=== PATIENT | male | born 1985 | race Caucasian/White ===

== ENCOUNTER 2023-02-03 05:29 | Outpatient (CLI) | payer OTHER ==
[~2023-02-03] VITALS: Ht 175.3 cm; Wt 48.2 kg
[2023-02-04] MEDS ORDERED: FAMO-356 PO (09:07)
[2023-02-04] MEDS ORDERED: CYAN250014 PO (09:07)
[2023-02-04] MEDS ORDERED: AMLO2.5T4 PO (09:07)
== END 2023-02-04 09:27 | disposition home or self-care (01) ==
LOC: PREOP 05:29
PROVIDERS: ATTEND Surgery
DX: Z01.818 Encounter for other preprocedural examination (principal)

== ENCOUNTER 2023-02-10 08:41 | Day surgery (SDC) | payer OTHER ==
[2023-02-10] VITALS (12 sets, daily range): BP systolic 110–143; BP diastolic 59–100
[~2023-02-10] VITALS: Ht 175 cm; Wt 48.2 kg
[~2023-02-10 08:41] MED LIST: AMLO2.5T4 PO; CYAN250014 PO; FAMO-356 PO
[2023-02-10] MEDS ORDERED: ceFAZolin INJECTION 2,000 MG ONE (09:16)
[2023-02-10] MEDS ORDERED: NS (IVPB) 50 ML 50 ML ONE (09:16)
[2023-02-10] MEDS ORDERED: LACTATED RINGERS 1,000 ML 1,000 ML IV PRN (09:45)
[2023-02-10] MEDS ORDERED: NS IV 500 ML 500 ML IV PRN (09:45)
[2023-02-10] MEDS ORDERED: ceFAZolin INJECTION 2,000 MG in NS (IVPB) 50 ML 50 ML IV ONE (09:45)
--- NOTE | 2023-02-10 11:28 | Progress Note-Pre Operative ---
Pre-Operative Progress Note Date H&P Reviewed: Feb 10, 2023 Time H&P Reviewed: 11:27 History & Physical: H&P Reviewed, Patient Examed, No changes noted Pre-Operative Diagnosis: chronic kidney disease, peritoneal dialysis cathter malfunction EDINSON SALAS DO Feb 10, 2023 11:28
[2023-02-10] MEDS ORDERED: LIDOCAINE/EPI 1%-1:200,000 (XYLOCAINE) 30 ML VIAL ONE (12:04)
[2023-02-10] MEDS ORDERED: dexAMETHasone INJ 10 MG/ML 1 ML VIAL ONE (12:39)
[2023-02-10] MEDS ORDERED: SEVOFLURANE (ULTANE) 15 ML INHAL SOLN ONE ×2 (12:39→14:40)
[2023-02-10] MEDS ORDERED: proPOfol INJECTION 200 MG/20 ML VIAL IV ONE (12:39)
[2023-02-10] MEDS ORDERED: fentaNYL INJECTION 100 MCG/2 ML VIAL ONE (12:39)
[2023-02-10] MEDS ORDERED: LIDOCAINE PF 2% 5 ML VIAL ONE (12:39)
[2023-02-10] MEDS ORDERED: ONDANSETRON INJECTION 4 MG/2 ML (SDV) ONE (12:39)
[2023-02-10] MEDS ORDERED: ROCURONIUM 50 MG/5 ML VIAL IV ONE (12:40)
[2023-02-10] MEDS ORDERED: MIDAZOLAM INJ 2 MG/2 ML VIAL ONE (12:40)
[2023-02-10] MEDS ORDERED: PHENYLEPHRINE 100 MCG/ML 10 ML (ANESTHESIA) SYR ONE ×2 (14:26→14:27)
[2023-02-10] MEDS ORDERED: LIDOCAINE/EPI 1%-1:200,000 (XYLOCAINE) 30 ML VIAL INJ ONE (14:51)
[2023-02-10] MEDS ORDERED: GLYCOPYRROLATE INJ 0.2 MG/ML 2 ML VIAL ONE (14:59)
[2023-02-10] MEDS ORDERED: NEOSTIGMINE 1 MG/1ML 10 ML VIAL ONE (14:59)
--- NOTE | 2023-02-10 15:02 | Progress Note-Post Operative ---
Post-Operative Progess Note Surgeon (s)/Band Presser (s) Surgeon EDINSON SALAS DO Band Presser: na Pre-Operative Diagnosis chronic kidney disease, peritoneal dialysis cathter malfunction Post-Operative Diagnosis same Procedure & Operative Findings Date of Procedure 02/10/23 Procedure Performed/Findings lap pd catheter placement and removal of pd catheter. Anesthesia Type general Estimated Blood Loss Estimated blood loss (mL): minimal Specimens/Packing Specimens Removed na EDINSON SALAS DO Feb 10, 2023 15:02
[2023-02-10] MEDS ORDERED: ACHD5005 PO (15:03)
--- NOTE | 2023-02-10 15:05 | Discharge Inst-Simple/Standard ---
Discharge Inst-Standard Discharge Medications New, Converted or Re-Newed RX: Transmitted to Pharmacy Patient Instructions/Follow Up Plan of Care/Instructions/FU: 2 weeks [facility] this week. Activity as Tolerated: No Discharge Diet: Regular Diet Other Inst to Patient Follow up Appt: Make appointment for 2 week. Dialysis center this week. Instructions: No lifting greater than 10 pounds. No strenuous activity. May shower in 24 hours, no tub bath or soaking. Use incentive spirometer at home as directed. No Smoking Skin/Wound Care: You have special glue over your incision that will fall off on it's own. Change dressing daily and as needed for where old catheter came out. Symptoms to Report: Appetite Changes, Extremity Discoloration, Numbness/Tingling, Swelling Increased, Bleeding Excessive, Eyesight Changes, Pain Increased, Urine Color Change, Constipation(Persistent), Fever over 101 degree F, Pain/Pressure in chest, Urinating Difficulty, Cough Up/Vomit Blood, Heart Beat Irreg/Pounding, Pain/Pressure in jaw, Vaginal Bleeding Increase, Cramps in feet or legs, Lightheadedness, Pain/Pressure in shoulder, Diarrhea(Persistent), Memory Changes Suddenly, Questions/Concerns, Weight gain consecutive days, Dizziness/Fainting, Nausea/Vomiting, Shortness of Breath, Weight gain over 2 pounds If questions or concerns contact your physician Or seek help at emergency department. EDINSON SALAS DO Feb 10, 2023 15:05
--- NOTE | 2023-02-10 15:17 | Anesthesia-General Post-Op ---
General Patient Condition Mental Status/LOC: Same as Preop Cardiovascular: Satisfactory Nausea/Vomiting: Absent Respiratory: Satisfactory Pain: Controlled Complications: Absent Post Op Complications Complications None Follow Up Care/Instructions Patient Instructions None needed. Anesthesia/Patient Condition Patient Condition Patient is doing well, no complaints, stable vital signs, no apparent adverse anesthesia problems. No complications reported per nursing. SAMAN VERMA CRNA Feb 10, 2023 15:17
[2023-02-10] MEDS ORDERED: fentaNYL INJECTION 100 MCG/2 ML VIAL IVP ONE (15:30)
[2023-02-10] MEDS ORDERED: ONDANSETRON INJECTION 4 MG/2 ML (SDV) IVP PRN (15:30)
[2023-02-10] MEDS ORDERED: HYDROcodone/ACETAMINOPHEN 5 MG/325 MG TABLET PO ONE (16:30)
[2023-02-10] MEDS ORDERED: HYDROcodone/APAP 7.5MG-325 MG/15 ML ORAL SOLN PO PRN (16:30)
[2023-02-10] MEDS ORDERED: HYDROcodone/ACETAMINOPHEN 5 MG/325 MG TABLET ONE (16:32)
--- NOTE | 2023-02-10 23:28 | OPERATIVE REPORT ---
DATE OF SERVICE: 02/10/2023 PREOPERATIVE DIAGNOSIS: Chronic kidney disease and peritoneal dialysis catheter malfunction. POSTOPERATIVE DIAGNOSIS: Chronic kidney disease and peritoneal dialysis catheter malfunction. PROCEDURE: Laparoscopic peritoneal dialysis catheter placement and removal of old peritoneal dialysis catheter. SURGEON: Steven Millard DO CHEMICAL PROCESSING TECHNICIAN: None. ANESTHESIA: General. ESTIMATED BLOOD LOSS: Minimal. COMPLICATIONS: None. INDICATIONS: The patient is a 37-year-old male with chronic kidney disease, he uses peritoneal dialysis catheter. The patient with malfunction of the peritoneal dialysis catheter. He understands all risks and benefits of procedures and wished to proceed. Consent was signed in chart. DESCRIPTION OF PROCEDURE: The patient was taken to the operating suite where he was prepped and draped in sterile fashion. Timeout was performed. Local anesthetic was infiltrated just above the umbilicus. An 11 blade scalpel was used to make a small skin incision. Cautery was used to dissect down to the fascia, which was then scored and opened. Kochers were placed on the fascia and 0 Vicryl was placed in a [id number] fashion for closure at the end the case. A suresh trocar was inserted into the abdomen. Pneumoperitoneum was achieved. The existing peritoneal dialysis catheter was in the right side of the abdomen in its mid segments of the small bowel that had worked its way through the loop of the distal catheter, but is able to be easily moved. A 5 mm trocar was placed in the left lateral quadrant. Then, an 8-mm robotic trocar was inserted to the right through the rectus and angled down towards the pelvis. A 57 cm peritoneal dialysis catheter was inserted and the robotic trocar was removed and the distal cuff was brought up into the preperitoneal space. This catheter was then tunneled from this incision site out laterally to the right and then secured with a 3-0 silk suture. The previous peritoneal dialysis catheter was then dissected around freeing each cuff and removing the catheter in its entirety. A total of 450 mL of saline was then injected through the new catheter, which flushed and withdrew easily. Left fluid in the pelvis to float the catheter. The trocars were then removed. The 0 Vicryl placed at beginning of the case was then sutured. The skin was then closed with 4-0 Monocryl on the trocar sites. The previous peritoneal dialysis opening the skin was then left open and a sterile bandage was applied. The patient tolerated the procedure well without complications, taken to recovery room in stable condition. Job ID: [id number] DocumentID: [id number] Dictated Date: 02/10/2023 17:19:24 Field Spec Date: 02/10/2023 23:27:00 Dictated By: DO KRISSY MARTINEZ
== END 2023-02-10 17:01 | disposition home or self-care (01) ==
LOC: SDC 08:41
PROVIDERS: ATTEND Surgery
DX: T85.611A Breakdown (mechanical) of intraperitoneal dialysis catheter, initial encounter (principal); N18.6 End stage renal disease; F17.220 Nicotine dependence, chewing tobacco, uncomplicated
CPT/HCPCS: 36415; 84132; 87081; 94664